=== PATIENT | male | born 1945 ===

== ENCOUNTER 2021-09-01 14:59 | Outpatient (REF) | payer MEDICARE, SELFPAY ==
[2021-09-01 15:40] LABS: Binax Internal Control QC Valid; Binax Lot number: 9864; Binax Now Covid-19 Ag Negative (Negative)
== END 2021-09-01 15:00 | disposition home or self-care (01) ==
LOC: HO.LAB 14:59
PROVIDERS: Visit Provider Internal Medicine
DX: Z20.822 Contact with and (suspected) exposure to COVID-19 (principal)
CPT/HCPCS: C9803